=== PATIENT | female | born 1990 | race Caucasian/White ===

== ENCOUNTER → 2018-05-12 | Day surgery (SDC) | payer MEDICAID, OTHER ==
[~2018-05-12] MED LIST: CHOL500016 PO; ESCITALOPRAM OX10 MG PO; FERR325T14 PO; HYDROmorphone 2 MG/ML VIAL IV PRN; IV RINGERS,LACTATED 1000ML 1,000 ML IV SCH; LIDOCAINE 1% PF 2 ML VIAL. ID PRN; LIDOCAINE 1% PF 2 ML VIAL. ONE; METF500T16 PO; MORPHINE SULFATE 2 MG/ML VIAL. IV PRN; ONDANSETRON PF 4 MG/2 ML VIAL. IV PRN; PROCHLORPERAZINE 10 MG/2 ML VIAL. IV PRN; PROPOFOL 40 ML IV ONE; fentaNYL PF VIAL 100 MCG/2 ML VIAL IV PRN
[2018-05-12 08:22] VITALS: BP 113/59
--- NOTE | 2018-05-12 08:46 | HP ---
ADMIT DATE: 05/12/2018 REASON: History of colonic polyps for surveillance colonoscopy. REFERRING PHYSICIAN: Omar Obregon MD HISTORY OF PRESENT ILLNESS: This is a 27-year-old female with past medical history significant for appendectomy, cholecystectomy, tonsillectomy, tubal ligation as well as diabetes is seen for interval colonoscopy. Last exam was 3 years ago. There has been no constipation or diarrhea out of the ordinary. There has been no melena and/or hematochezia. Family history is positive for colon polyps with her father and grandmother. Weight and appetite are stable. She is otherwise without additional complaints. PAST MEDICAL HISTORY: Diabetes, status post appendectomy, cholecystectomy, tonsillectomy and tubal ligation. ALLERGIES: LATEX AND MORPHINE. MEDICATIONS: Include metformin, Lexapro, vitamins and iron. FAMILY AND SOCIAL HISTORY: She is nonsmoker and nondrinker. FAMILY HISTORY: Significant for colonic polyps with father and grandmother. REVIEW OF SYSTEMS: HEENT: There is no decrease in visual acuity issues. CARDIAC: No history of hypertension, palpitations, syncope. PULMONARY: No shortness of breath, productive cough or asthma. RENAL: No dysuria, frequency or hematuria. NEUROLOGIC: No stroke, migraine or neuropathy. PSYCHIATRIC: No mood swings, depression or insomnia. ENDOCRINE: History of diabetes. GASTROINTESTINAL REVIEW OF SYSTEMS: See history of present illness. HEMATOLOGIC: No bleeding, bruising or coagulopathy. DERMATOLOGIC: No skin rashes or pruritus. PHYSICAL EXAMINATION: GENERAL: Reveals a well-nourished, well-developed female. VITAL SIGNS: Temperature is 97, pulse 103 and respirations 18. HEENT: Normocephalic and atraumatic head. Pupils and extraocular muscles are not tested. Sclerae are anicteric. NECK: Supple. LUNGS: Clear. CARDIOVASCULAR: Reveals an S1 and S2 without S3, S4 or appreciable murmur. ABDOMEN: Reveals soft abdomen, normal bowel sounds without appreciable hepatosplenomegaly. EXTREMITIES: Reveals no cyanosis, clubbing or edema. IMPRESSION: History of colonic polyps. Surveillance exam is recommended at this time. Risks and benefits of the procedure including risk of hemorrhage and perforation have been discussed. The patient is willing to proceed. KOKO PECK MD DR: JENNIFER/maddie JOB#: [id number] / [id number] OMAR Grissom MD
== END | disposition home or self-care (01) ==
LOC: ENDOS 06:28
PROVIDERS: ATTEND Internal Medicine Gastroenterology
DX: Z12.11 Encounter for screening for malignant neoplasm of colon (principal); K64.0 First degree hemorrhoids; E11.9 Type 2 diabetes mellitus without complications; Z86.010 Personal history of colon polyps; Z90.49 Acquired absence of other specified parts of digestive tract; Z98.890 Other specified postprocedural states; Z98.51 Tubal ligation status; Z83.71 Family history of colonic polyps; Z79.84 Long term (current) use of oral hypoglycemic drugs; Z79.899 Other long term (current) drug therapy; Z88.5 Allergy status to narcotic agent; Z91.040 Latex allergy status
CPT/HCPCS: 45378; J2704

== ENCOUNTER → 2018-05-28 | Outpatient (CLI) | payer MEDICAID ==
[2018-05-12 08:22] VITALS: BP 113/59
[~2018-05-28] MED LIST changes: -HYDROmorphone 2 MG/ML VIAL IV PRN; -IV RINGERS,LACTATED 1000ML 1,000 ML IV SCH; -LIDOCAINE 1% PF 2 ML VIAL. ID PRN; -LIDOCAINE 1% PF 2 ML VIAL. ONE; -MORPHINE SULFATE 2 MG/ML VIAL. IV PRN; -ONDANSETRON PF 4 MG/2 ML VIAL. IV PRN; -PROCHLORPERAZINE 10 MG/2 ML VIAL. IV PRN; -PROPOFOL 40 ML IV ONE; -fentaNYL PF VIAL 100 MCG/2 ML VIAL IV PRN
--- NOTE | 2018-05-28 11:36 | RAD ---
Examination: MRI of the left knee without contrast HISTORY: History of left knee pain. History of MCL tear COMPARISON: None available TECHNIQUE: Multiplanar, multisequence MR imaging of the left knee was performed without contrast. FINDINGS: The anterior cruciate ligament, posterior cruciate ligament are intact. The medial meniscus, lateral meniscus appears intact. The medial collateral ligament, lateral collateral ligamentous complex including the fibular collateral ligament, biceps femoris tendon, popliteus tendon appear intact. Mild lateral tilting of the patella with increased T2 signal identified in the lateral infrapatellar fat. There is deep fissuring of cartilage identified in the lateral patellar facet with small subchondral cystic changes in the patella. The medial retinaculum, lateral retinaculum appears intact. The extensor mechanism is intact. Mild T2 signal identified in the soft tissue anterior to the infrapatellar tendon inferiorly. IMPRESSION: 1. Mild lateral tilting of the patella likely patellar maltracking with increased T2 signal identified in the infrapatellar fat. Correlate for impingement. 2. Minimal knee joint effusion. 3. Minimal increased T2 signal identified in the soft tissue anterior to the infrapatellar tendon inferiorly likely nonspecific edema. 4. Grade II chondromalacia patella. Electronically signed by: Flex Carvalho MD (05/28/2018 11:31 AM) [facility]
== END | disposition home or self-care (01) ==
LOC: MRI 09:52
PROVIDERS: ATTEND Orthopaedic Surgery
DX: M25.462 Effusion, left knee (principal); M22.42 Chondromalacia patellae, left knee
CPT/HCPCS: 73721

== ENCOUNTER 2018-10-07 05:39 | Observation (INO) | payer MEDICAID, OTHER ==
--- NOTE | 2018-10-06 18:33 | PDOC1 ---
History and Physical Date of Admission Date of Admission 10/07/2018 Identification/Chief Complaint Chief Complaint recurrent left patella dislocation Source Source: Chart review History of Present Illness History of Present Illness This 27-year-old woman injured her left knee approximately September 2014. She fell off a horse. She felt her patella dislocate. She had an MRI of the knee that did show an MCL sprain. She thought something broke in her knee. She got carried off. She was treated at [facility] and [facility]. At the time she didn't have health insurance. Her treatment consisted of knee immobilizer for 2 weeks, and exercises that her doctor showed her. She's had increasing symptoms in the knee, and frequent sensation that the patella dislocates since then. Since that initial injury she has tried bracing, exercises, and time, but continues to have the sensation of popping and grinding. It swells. She has a sensation of knee Instability. She has audible crepitus. She has difficulty with stairs, squatting, and kneeling. Her medical history is significant for blood clots. She had 4 clots all at once, and was treated with Xarelto for 9 months after that. I don't believe she is on anticoagulation at this time, and has not had further clots. There is no definite history of blood clots, perhaps an uncle who had a clot. She had her MRI 05/28/18 which shows patella malalignment Past Medical History Past Medical History Colon trouble. Depression. Ovarian cysts. Blood clots. PCOS. Asthma. Past Surgical History Past Surgical History cholecystectomy 2016 tonsillectomy 1994 appendectomy 2017 fallopian tube 2018 D&C Past Surgical History: Appendectomy, Cholecystectomy, Tonsillectomy Social History Smoke: No ALCOHOL: occassional Current Medications Current Medications Current Medications Fentanyl Citrate (Fentanyl 2ml Vial) 25 mcg PRN Q5MIN PRN IV MILD PAIN 1-3; Start 10/07/18 at 07:00; Stop 10/08/18 at 06:59 Fentanyl Citrate (Fentanyl 2ml Vial) 50 mcg PRN Q5MIN PRN IV MODERATE TO SEVERE PAIN; Start 10/07/18 at 07:00; Stop 10/08/18 at 06:59 Ringer's Solution 1,000 ml @ 30 mls/hr Q24H IV ; Start 10/07/18 at 07:00; Stop 10/07/18 at 18:59 Prochlorperazine Edisylate (Compazine) 5 mg PACU PRN PRN IV NAUSEA, MRX1; Start 10/07/18 at 07:00; Stop 10/08/18 at 06:59 Active Scripts Active Reported Naproxen 375 Mg Tablet 1 Tab PO PRN PRN Ferrous Sulfate 325 Mg Tablet 1 Tab PO DAILY Vitamin D3 (Cholecalciferol (Vitamin D3)) 5,000 Unit Tablet 1 Tab PO DAILY Escitalopram Oxalate 10 Mg Tablet 1 Tab PO DAILY Metformin Hcl 500 Mg Tablet 500 Mg PO TID Allergies Allergies: Coded Allergies: latex (Verified Allergy, Intermediate, Hives, 10/06/18) morphine (Verified Allergy, Intermediate, Rash, 10/06/18) lactose (Verified Allergy, Unknown, LACTOSE INTOLERANCE, 10/06/18) Uncoded Allergies: SKIN ADHESIVE (Allergy, Unknown, SKIN GLUE - RASH, 10/06/18) WASABI (Allergy, Unknown, THROAT STARTED TO CLOSE UP, 10/06/18) ROS Review of System CONSTITUTIONAL: Fever denies. Chills denies. Weight gain denies. Weakness none. weight loss denies. Fatigue none. OPHTHALMOLOGY: Blurred vision none. Double vision denies. Change in vision none. ENT: Hearing loss none. Change in voice denies. Rhinorrhea none. CARDIOLOGY: Palpitations none. Shortness of breath denies. Chest pain denies. GASTROENTEROLOGY: Vomiting none. Dysphagia none. UROLOGY: Voiding normally yes. Hematuria none. MUSCULOSKELETAL: Chronic back or neck pain denies. Swelling of the feet, hands, ankles and /or legs denies. Joint pain no. DERMATOLOGY: Rash denies. Lumps none. NEUROLOGY: Dizziness/lightheadedness denies. Double vision, temporary blindness denies. Tingling/numbness none. PSYCHOLOGY: Change in mood or personality denies. Memory loss none. ENDOCRINOLOGY: Obesity denies. Fatigue none. Weight loss none. HEMATOLOGY/LYMPH: Hepatitis denies. Enlarged lymph nodes denies. positive for knee pain, and for leg swelling. Physical Exam General: Alert, Cooperative HEENT: Atraumatic Lungs: Normal air movement Heart: RRR Abdomen: Soft Extremities: No clubbing, No cyanosis, No edema, Normal pulses, Other (The right knee shows normal gross alignment, no masses and no effusion. Q angle appears abnormal. Tenderness to palpation of the lateral patella. Range of motion is 0-125 degrees, with moderate crepitus, and pain at the extremes of motion. When she does active range of motion there is audible crepitus. The knee is stable to varus and valgus stress without subluxation or laxity. Muscle strength is normal (5/5) for quadriceps and hamstrings, and muscle tone is normal. The skin is normal with no scars, rashes, lesions or ulcers. Light touch sensation is intact. No edema and no varicosities. Dorsalis pedis pulse is intact and capillary refill is normal. There is patellar hypermobility with lateral glide of 3 quadrants and positive lateral apprehension) Images Images Report reviewed, images independently reviewed, MRI 05/28/18. Series 5 damage 10 shows the severe patellar tilt and subluxation. Series 5 image 14 and series 4 image 29 show the significant TT to TG distance, measured at 21 mm on series 4. Significantly increased from 9 mm normal. [facility] [address] [place] [address] IMAGING REPORT Signed PATIENT: YADIRA MONZON ACCOUNT: [id number] : 1990 LOCATION: MRI AGE: 27 SEX: F EXAM STATUS: REG CLI ORD. PHYSICIAN: MARISEL MARS MD REASON: PROCEDURE: LOWER EXT JOINT WO LT Examination: MRI of the left knee without contrast HISTORY: History of left knee pain. History of MCL tear COMPARISON: None available TECHNIQUE: Multiplanar, multisequence MR imaging of the left knee was performed without contrast. FINDINGS: The anterior cruciate ligament, posterior cruciate ligament are intact. The medial meniscus, lateral meniscus appears intact. The medial collateral ligament, lateral collateral ligamentous complex including the fibular collateral ligament, biceps femoris tendon, popliteus tendon appear intact. Mild lateral tilting of the patella with increased T2 signal identified in the lateral infrapatellar fat. There is deep fissuring of cartilage identified in the lateral patellar facet with small subchondral cystic changes in the patella. The medial retinaculum, lateral retinaculum appears intact. The extensor mechanism is intact. Mild T2 signal identified in the soft tissue anterior to the infrapatellar tendon inferiorly. IMPRESSION: 1. Mild lateral tilting of the patella likely patellar maltracking with increased T2 signal identified in the infrapatellar fat. Correlate for impingement. 2. Minimal knee joint effusion. 3. Minimal increased T2 signal identified in the soft tissue anterior to the infrapatellar tendon inferiorly likely nonspecific edema. 4. Grade II chondromalacia patella. Electronically signed by: Flex Carvalho MD (05/28/2018 11:31 AM) [id number] DICTATED and SIGNED BY: FLEX CARVALHO MD DATE: 05/28/18 1117 I reviewed the MRI images from 10/08/14 which showed a bob rthrosis, probable patellar dislocation or subluxation, and mild MCL sprain. There was no report with these images. VTE Prophylaxis Ordered VTE Prophylaxis Devices: Yes VTE Pharmacological Prophylaxi: Yes Assessment/Plan Assessment/Plan 1. Patellar instability of left knee: She has a history of knee injury, and patellar instability since then. On my examination her MPFL (medial patellofemoral ligament) is torn, and she has abnormal alignment distally of the tibial tubercle. She also has severe chondromalacia on examination and by history. 2. Recurrent dislocation of left patella: We discussed treatment of her patellar instability and recurrent dislocation symptoms. She has a high Q angle, patellar tilt, patellofemoral subluxation and abnormal cartilage on the patella. I recommended arthroscopy, chondroplasty, medial patellofemoral ligament reconstruction, and tibial tubercle osteotomy. We discussed the potential risks of infection, compartment syndrome, nerve injury, bleeding, scarring, need for hardware removal, continued dislocation episodes either medial or lateral or other potential surgical or anesthetic complications. All of her questions about surgery were answered and she desires to proceed MARISEL MARS MD October 06, 2018 18:33
[2018-10-07] VITALS (11 sets, daily range): BP systolic 108–148; BP diastolic 57–82
[~2018-10-07] VITALS: Ht 160 cm; Wt 122.5 kg
[~2018-10-07 05:39] MED LIST changes: +NAPR-695 PO
[2018-10-07] MEDS ORDERED: ceFAZolin SODIUM 3 GM in IV DEXTROSE 5% 100ML 100 ML IV PRN (06:00)
[2018-10-07] MEDS ORDERED: EPINEPHrine VIAL 30 MG/30 ML VIAL ONE (06:02)
[2018-10-07] MEDS ORDERED: BUPIVACAINE-EPI 0.25%-1:200000 MPF 30 ML VIAL. ONE ×2 (06:02→06:15)
[2018-10-07 06:28] LABS: U PREG PATIENT NEGATIVE (NEG)
[2018-10-07] MEDS ORDERED: SCOPOLAMINE 1.5MG PATCH. TD ONE ×2 (06:30→06:45)
[2018-10-07] MEDS: IV RINGERS,LACTATED 1000ML 1,000 ML IV SCH ×2 (06:39→10:32)
[2018-10-07] MEDS ORDERED: fentaNYL PF VIAL 100 MCG/2 ML VIAL IV PRN ×2 (07:00)
[2018-10-07] MEDS ORDERED: PROCHLORPERAZINE 10 MG/2 ML VIAL. IV PRN (07:00)
[2018-10-07] MEDS ORDERED: LIDOCAINE 2% PF 5 ML VIAL. ONE (07:05)
[2018-10-07] MEDS ORDERED: PROPOFOL 20 ML IV ONE ×2 (07:05→09:54)
[2018-10-07] MEDS ORDERED: DEXAMETHASONE SOD PHOS 4 MG/ML VIAL ONE ×2 (07:06)
[2018-10-07] MEDS ORDERED: ONDANSETRON PF 4 MG/2 ML VIAL. ONE (07:06)
[2018-10-07] MEDS ORDERED: SUCCINYLCHOLINE 200 MG/10 ML VIAL. ONE (07:07)
[2018-10-07] MEDS ORDERED: fentaNYL PF VIAL 100 MCG/2 ML VIAL ONE ×2 (07:07→08:17)
[2018-10-07] MEDS ORDERED: ROCURONIUM 50 MG/5 ML VIAL. ONE (07:07)
[2018-10-07] MEDS ORDERED: MIDAZOLAM HCL/PF 2 MG/2 ML VIAL. ONE (07:08)
[2018-10-07] MEDS ORDERED: diphenhydrAMINE 50 MG/ML VIAL ONE (07:39)
[2018-10-07] MEDS ORDERED: FAMOTIDINE 20 MG/2 ML VIAL ONE (07:48)
[2018-10-07] MEDS ORDERED: KETAMINE HCL IN NACL, ISO-OSM 50 MG/5 ML SYRINGE ONE (08:08)
[2018-10-07] MEDS ORDERED: HYDROmorphone 2 MG/ML VIAL ONE ×2 (08:18→10:19)
[2018-10-07] MEDS ORDERED: KETOROLAC 30 MG/ML INJ FOR OR. INJ ONE (09:33)
[2018-10-07] MEDS ORDERED: SEVOFLURANE > 120 MINUTES. IH ONE (09:41)
--- NOTE | 2018-10-07 09:57 | PDOC4 ---
Operative Note Operative Note Date of Procedure: October 07, 2018 Pre-Op Diagnosis: recurrent patella dislocation left knee Post-Op Diagnosis: recurrent patella dislocation left knee Procedures: 1. Tibial tubercle osteotomy Rickey procedure left tibia 2. Medial patellofemoral ligament reconstruction using ipsilateral hamstring autograft 3. Knee arthroscopy with chondroplasty Surgeon: Marisel Fernandez MD Cns: Criss ALBRIGHT, and Paul CARTER Anesthesia: General EBL: 200 mL Specimens Obtained: none Complications: none Drains: 10 [place] Citizen Hemovac Tourniquet time: 60 minutes Indications for Procedure: The patient is a 27-year-old with recurrent left patellar dislocation episodes. She and I talked about the risks and benefits of proceeding with the procedures above including tibial tubercle osteotomy, knee arthroscopy, and the patellofemoral ligament reconstruction using autograft. We discussed the potential risks such as nonunion, infection, blood clots, neurovascular injury, recurrent dislocations, scarring, need for hardware removal, compartment syndrome or other potential surgical or anesthetic competitions. All of their questions about surgery were answered and she desired to proceed. A written consent was obtained. Procedure in Detail: The patient was identified in the preoperative holding area. The correct left lower extremity was marked by me. The patient was taken to the operating room where general anesthesia was used. The patient was positi oned supine on the operating table. Preoperative antibiotics were given intravenously. A timeout procedure was performed. A tourniquet was placed on the upper thigh. A lateral brace and heel bump were used. The limb was prepared in sterile fashion from the toes to the tourniquet and sterile drapes are applied with an impervious stockinette over the lower limb. The hamstring graft was harvested first. A 4 cm longitudinal incision was made over the pes anserine bursa. I elevated the sartorius fascia. I was able to elevate the sartorius fascia and then identified the semitendinosus tendon which I stripped up the thigh with a [employer] tendon harvester. I then harvested the gracilis tendon, and the length of the tendon graft was 22 cm. The tendon graft was now taken to the back table or was further prepared by my rn first assistant Paul Aguilera. He removed excess muscle and synovium. He whipstitched each of the 2 free ends with #2 FiberWire suture. He kept the graft moistened and pretensioned until implantation. While he prepared the graft, I proceeded with the arthroscopy. The limb was elevated and then exsanguinated with an Esmarch bandage. The tourniquet was inflated to 350 mmHg. Lateral and medial arthroscopy portals were established. Systematic arthroscopy of the knee joint was performed. The medial and lateral menisci were normal, mild degenerative quality of the lateral meniscus but no tear. The cartilage was normal medially Outerbridge 0, and laterally is Outerbridge 1. The ACL and PCL are intact. There is severe chondromalacia of the patella Outerbridge 3 mostly medially, and gentle shaving chondroplasty was performed. The suprapatellar pouch medial and lateral gutters were free of loose bodies. There is severe lateral subluxation of the patella, nearly dislocated with the knee in extension and also patella david is noteed. The arthroscopic instruments were removed. A longitudinal incision was made just lateral to the tibial tubercle. Sharp dissection was used and Bovie electrocautery was used for hemostasis. The fascia of the tibialis anterior was elevated. The distal portion of the patellar tendon was identified. I now had Justin hold an AppSpotr-Hominy retractor beneath the patellar tendon, to prevent inadvertently cutting the tendon with the osteotome. I used a half-inch osteotome to create a dome shaped osteotomy horizontally through the tibial tubercle just above the patellar tendon attachment. I then used a half-inch Lily flat osteotome to create the oblique osteotomy as described by Rickey. This went from the lateral cortex to the medial cortex, and was designed parallel to the floor, so that there was no anteriorization nor any posterization of the tubercle. This patient did not need any offloading of the patellofemoral joint because she is already unstable, however I did not want to increase her contact forces. I had Criss hold the tubercle to its medialized and slightly distalized position. I reapplied the arthroscope and evaluated the tracking of the patella. This looked excellent. I then completed the osteotomy and secured it with fixation using three 3.5 mm cortical screws and each of the screws had a washer. Excellent reduction and fixation was obtained with secure compression of all 3 screws. Finally the medial patellofemoral ligament reconstruction was performed. A medial incision was made at the superior aspect of the patella. Sharp dissection was used and Bovie electrocautery was used for hemostasis. The medial patellar cartilage was exposed. A small arthrotomy had been made. I then used the Synthes 4.5 mm drill bit to create the tunnels in the bone of the patella. The first of these was 1 cm distal to the superior pole of the patella, and angled slightly obliquely so as to exit the anterior cortex of the patella. The second was 1 cm further distal, at the skull valley MPFL attachment, again exiting the anterior medial cortex, obliquely angled starting at the cartilage margin medially. I then used a [employer] suture passer to place #5 FiberWire passing sutures. I then had Criss bringing the graft from the back table, and we passed the graft through the tunnels. We were able to pass the graft easily through the tunnels, and bringing both tails out the medial aspect of the patella. An incision was made at this point over the medial femoral epicondyle. The im age intensifier was brought in, and a perfect lateral of the knee was taken. I interpreted all of the images intraoperatively by myself. The Schottle point was identified, slightly anterior to the posterior femoral cortex, slightly distal to the articular margin, and slightly proximal to the posterior aspect of the intercondylar notch. A guidepin (Beath pin) was placed, and drilled across the femur, exiting out the skin of the lateral thigh through the Schottle point. A 6 mm reamer was used to create a socket, to the full depth all the way to the lateral femoral cortex to allow the graft to tension as much as needed. I now passed the #2 FiberWire sutures from the medial aspect of the patella through the deepest extracapsular layer of the knee, and deployed those sutures onto the Beath pin. Now I had Criss tension the graft using those #2 FiberWire sutures and checked the patella reduction arthroscopically. I deployed the 6 mm x 23 mm BioScrew from the [employer] company over a nitinol wire. This secured the graft nicely. The patella was now reexamined and was unable to be dislocated. There was nice concentric reduction of the patella arthroscopically. There was no excessive tension. Copious irrigation was used. The tourniquet was released. Bovie electric cautery was used for hemostasis. An injection was used with bupivacaine and epinephrine. A Hemovac drain was placed. Incisions were now closed. I closed deep fascia with #1 Vicryl suture at the tibial tubercle and the patella. Criss closed the subcutaneous tissues with 2-0 Vicryl. I had Criss close the skin with 3-0 Prolene. Xeroform sterile dressings and knee immobilizer were applied. Needle and sponge counts were correct. There were no apparent complications. MARISEL FERNANDEZ MD October 07, 2018 09:57
[2018-10-07] MEDS ORDERED: POLYETHYLENE GLYCOL 3350 17 GM PACKET. PO PRN (10:00)
[2018-10-07] MEDS ORDERED: oxyCODONE/APAP 5/325 1 TAB TABLET PO PRN ×2 (10:00→10:30)
[2018-10-07] MEDS ORDERED: DEXTROSE 50% 25 GM / 50ML DISP.SYRIN. IV PRN (10:00)
[2018-10-07] MEDS ORDERED: HYDROcodone/APAP 7.5/325MG 1 TAB TABLET PO PRN (10:00)
[2018-10-07] MEDS: HYDROmorphone 2 MG/ML VIAL IV PRN ×2 (10:45→11:06)
--- NOTE | 2018-10-07 10:57 | RAD ---
EXAM: AP and lateral views of the left knee DATE: 10/07/2018 9:57 AM INDICATION: Postoperative evaluation for alignment COMPARISON: No Prior FINDINGS/ IMPRESSION: Changes of tibial tuberosity osteotomy are seen with 3 screws fixating the tibial tuberosity fragment. The proximal screw tip extends into the posterior soft tissues and the distal screw extends into the medial soft tissues. Medial femoral condylar and patellar lucency are also seen, postsurgical. Electronically signed by: Jackson Hilario MD (10/07/2018 10:54 AM) [id number]
[2018-10-07] MEDS: IV 1/2 NORMAL SALINE 1,000 ML IV SCH (11:51)
[2018-10-07] MEDS: ceFAZolin SODIUM 3 GM in IV DEXTROSE 5% 100ML 100 ML IV SCH ×2 (13:18→20:58)
[2018-10-07] MEDS: fentaNYL PF VIAL 100 MCG/2 ML VIAL IV PRN ×3 (13:22→20:58)
[2018-10-07] MEDS: oxyCODONE IR 5 MG TABLET PO PRN (14:45)
[2018-10-07] MEDS: ONDANSETRON PF 4 MG/2 ML VIAL. IV PRN ×2 (16:06→21:13)
[2018-10-07] MEDS: metFORMIN 500 MG TABLET PO SCH (16:48)
[2018-10-07] MEDS: KETOROLAC 30 MG/ML VIAL. IV SCH (16:49)
[2018-10-07] MEDS: HYDROcodone/APAP 7.5/325MG 1 TAB TABLET PO PRN ×2 (16:56→23:00)
[2018-10-08] MEDS: KETOROLAC 30 MG/ML VIAL. IV SCH ×6 (01:23→23:12)
[2018-10-08] MEDS: IV 1/2 NORMAL SALINE 1,000 ML IV SCH ×2 (02:07→14:40)
[2018-10-08] MEDS: ceFAZolin SODIUM 3 GM in IV DEXTROSE 5% 100ML 100 ML IV SCH (02:31)
[2018-10-08 03:00] VITALS: BP 110/47
[2018-10-08] MEDS: HYDROcodone/APAP 7.5/325MG 1 TAB TABLET PO PRN (05:46)
[2018-10-08] MEDS ORDERED: MAGNESIUM HYDROXIDE 2,400 MG/30 ML ORAL.SUSP. PO PRN (06:00)
[2018-10-08 07:15] VITALS: BP 107/58
[2018-10-08] MEDS: metFORMIN 500 MG TABLET PO SCH ×3 (08:00→17:00)
--- NOTE | 2018-10-08 08:04 | PDOC ---
ORTHO PROGRESS NOTES Subjective Patient feeling well with pain at 5 out of 10 this morning. Post-op Day: 1 Procedure Left Knee Tibial Tubercle Osteotomy tibia with Medial Patellofemoral Ligament reconstruction, knee arthroscopy with chrondroplasty. Vitals Vital Signs Date Time Temp Pulse Resp B/P (MAP) Pulse Ox O2 Delivery O2 Flow Rate FiO2 10/08/18 06:46 Room Air 10/08/18 03:00 98.3 72 18 110/47 (68) 97 98.3 10/07/18 16:11 2.0 Labs Laboratory Tests Test 10/07/18 06:00 Urine Test Negative (NEG) Notes awake and alert Assessment and Plan POD#1 as listed above motor and sensory intact distally dressing dry and intact Pain control and up with PT Expect d/c tomorrow JAVIER AMIN APRN October 08, 2018 08:04
[2018-10-08] MEDS: FERROUS SULFATE 325 MG TABLET. PO SCH (08:36)
[2018-10-08] MEDS: RIVAROXABAN 10 MG TABLET. PO SCH (08:36)
[2018-10-08] MEDS: CHOLECALCIFEROL (VITAMIN D3) 5,000 UNIT CAPSULE PO SCH (08:36)
[2018-10-08] MEDS: CITALOPRAM 20 MG TABLET. PO SCH (08:36)
[2018-10-08] MEDS: SENNOSIDES/DOCUSATE 8.6/50MG TABLET. PO SCH (08:36)
[2018-10-08] MEDS: fentaNYL PF VIAL 100 MCG/2 ML VIAL IV PRN (08:41)
[2018-10-08] MEDS ORDERED: CHOLECALCIFEROL (VITAMIN D3) 1,000 UNIT TABLET PO SCH (09:00)
--- NOTE | 2018-10-08 09:00 | NUR ---
rests quietly in bed; immobilizer remains in place. she has good strength, pulses and sensation. rating her pain is approx 5-6.
[2018-10-08 11:06] VITALS: BP 98/52
[2018-10-08] MEDS: oxyCODONE IR 5 MG TABLET PO PRN ×4 (11:22→20:14)
[2018-10-08] MEDS ORDERED: ANTI-COAG MONITOR BY PHARMACY. MC PRN (11:30)
--- NOTE | 2018-10-08 15:00 | NUR ---
Dr. Fernandez here and remove Hemovac. states that she is painful. she has been medicated with Toradol and oxycodone.
[2018-10-08 15:03] VITALS: BP 102/55
[2018-10-08] MEDS ORDERED: BISACODYL 10 MG SUPP.RECT. PR PRN (16:00)
--- NOTE | 2018-10-08 16:44 | PDOC ---
PROGRESS NOTES Subjective Subjective Quite a bit of pain, but better with narcotics. Not safe to walk yet because of heavy narcotics. Objective Vital Signs Vital Signs Date Time Temp Pulse Resp B/P (MAP) Pulse Ox O2 Delivery O2 Flow Rate FiO2 10/08/18 15:03 97.6 83 18 102/55 (71) 96 Room Air 97.6 10/07/18 16:11 2.0 Physical Exam No sign of compartment syndrome, neurovascular injury nor DVT. Mild bloody drainage. Hemovac minimal output today and I removed it. In bed currently, looks immobile and mildly sedated, but conversant. Labs Laboratory Tests Test 10/07/18 06:00 Urine Test Negative (NEG) Imaging Postop x-rays report reviewed, images independently reviewed. Screws a little l gallo but doubt these will cause a problem. Satisfactory MPFL and TTO otherwise. [facility] [address] [place] [address] IMAGING REPORT Signed PATIENT: YADIRA MONZON ACCOUNT: [id number] : 1990 LOCATION: SURG AGE: 27 SEX: F EXAM STATUS: REG [facility] ORD. PHYSICIAN: MARISEL MARS MD REASON: POST OP LEFT KNEE PROCEDURE: KNEE LEFT 2V EXAM: AP and lateral views of the left knee DATE: 10/07/2018 9:57 AM INDICATION: Postoperative evaluation for alignment COMPARISON: No Prior FINDINGS/ IMPRESSION: Changes of tibial tuberosity osteotomy are seen with 3 screws fixating the tibial tuberosity fragment. The proximal screw tip extends into the posterior soft tissues and the distal screw extends into the medial soft tissues. Medial femoral condylar and patellar lucency are also seen, postsurgical. Electronically signed by: Jackson Hilario MD (10/07/2018 10:54 AM) [id number] DICTATED and SIGNED BY: JACKSON HILARIO MD DATE: 10/07/18 1054 Assessment Assessment POD#1 after TTO and MPFL Plan Plan of Care Continue Xarelto and pain medication. Continue PT. Drain out today. Likely home tomorrow. MARISEL MARS MD October 08, 2018 16:44
[2018-10-08 19:00] VITALS: BP 118/66
[2018-10-08] MEDS ORDERED: ZOLPIDEM 5 MG TABLET. PO PRN (21:00)
[2018-10-08 23:00] VITALS: BP 108/64
[2018-10-09 03:00] VITALS: BP 107/65
[2018-10-09] MEDS: oxyCODONE IR 5 MG TABLET PO PRN ×2 (03:32→09:37)
[2018-10-09] MEDS: ONDANSETRON PF 4 MG/2 ML VIAL. IV PRN ×2 (03:44→09:36)
[2018-10-09] MEDS: IV 1/2 NORMAL SALINE 1,000 ML IV SCH (04:00)
[2018-10-09] MEDS: KETOROLAC 30 MG/ML VIAL. IV SCH ×2 (05:40→11:35)
[2018-10-09 07:00] VITALS: BP 119/55
[2018-10-09] MEDS: metFORMIN 500 MG TABLET PO SCH ×2 (08:00→11:38)
[2018-10-09] MEDS: FERROUS SULFATE 325 MG TABLET. PO SCH (08:04)
[2018-10-09] MEDS: CHOLECALCIFEROL (VITAMIN D3) 5,000 UNIT CAPSULE PO SCH (08:04)
[2018-10-09] MEDS: RIVAROXABAN 10 MG TABLET. PO SCH (08:04)
[2018-10-09] MEDS: SENNOSIDES/DOCUSATE 8.6/50MG TABLET. PO SCH (08:04)
[2018-10-09] MEDS: CITALOPRAM 20 MG TABLET. PO SCH (08:04)
[2018-10-09 11:00] VITALS: BP 128/62
--- NOTE | 2018-10-09 12:35 | PDOC ---
PROGRESS NOTES Subjective Subjective Doing somewhat better, tired. Objective Vital Signs Vital Signs Date Time Temp Pulse Resp B/P (MAP) Pulse Ox O2 Delivery O2 Flow Rate FiO2 10/09/18 11:00 98.1 85 16 128/62 (84) 96 Room Air 98.1 10/07/18 16:11 2.0 Physical Exam Dressing intact and dry. Toes NVI. No calf tenderness. Homans neg. Assessment Assessment POD#2 after TTO and MPFL with knee scope and chondroplasty. Hx DVTs. Plan Plan of Long-Term today Continue knee immobilizer TTWB Keep incisions dry. Continue Xarelto 30 days Ambien for sleep, Percocet for pain Office FU MARISEL MARS MD October 09, 2018 12:35
[2018-10-09] MEDS ORDERED: OXYC1TAB15 PO (12:39)
[2018-10-09] MEDS ORDERED: ZOLP5TAB PO (12:39)
[2018-10-09] MEDS ORDERED: RIVA10TA PO (12:42)
--- NOTE | 2018-10-09 14:45 | NUR ---
Discharge instructions and belongings reviewed with patient, verbalized understanding. Patient was escorted out via wheelchair by Rashmi DRAPER and picked up by her Mother.
== END 2018-10-09 14:47 | disposition home or self-care (01) ==
LOC: SURG 05:39 → 4 NORTH 11:28
PROVIDERS: ADMIT Orthopaedic Surgery; ATTEND Orthopaedic Surgery
DX: M22.02 Recurrent dislocation of patella, left knee (principal); M23.52 Chronic instability of knee, left knee; Z98.890 Other specified postprocedural states; J45.909 Unspecified asthma, uncomplicated; F32.9 Major depressive disorder, single episode, unspecified; N83.209 Unspecified ovarian cyst, unspecified side; Z90.49 Acquired absence of other specified parts of digestive tract; Z86.718 Personal history of other venous thrombosis and embolism; E28.2 Polycystic ovarian syndrome; V80.010A Animal-rider injured by fall from or being thrown from horse in noncollision accident, initial encounter; Y93.52 Activity, horseback riding; Y92.89 Other specified places as the place of occurrence of the external cause; Y99.8 Other external cause status; M22.40 Chondromalacia patellae, unspecified knee
CPT/HCPCS: 27418; 27427; 29877; 73560; 76000; 81025; 96365; 96366; 96375; 96376; 97110; 97116; 97162; 97166; 97530; 97535; A7015; C1713; C1782; G0378; G0379; J0171; J0330; J0690; J0780; J1100; J1170; J1200; J1885; J2001; J2250; J2405; J2704; J3010; J3490; J7120

== ENCOUNTER 2018-10-10 15:52 | Emergency (ER) | payer OTHER ==
[~2018-10-10] VITALS: Ht 157.5 cm; Wt 122.5 kg
[~2018-10-10 15:52] MED LIST changes: +OXYC1TAB15 PO; +RIVA10TA PO; +ZOLP5TAB PO
[2018-10-10 16:53] VITALS: BP 149/85
--- NOTE | 2018-10-10 17:01 | PHYS DOC ---
Adult General Chief Complaint Chief Complaint: LOWEREXTREMITY INJURY HPI HPI Patient is a 27 year old female who presents complaining of increasing pain to the left knee that began this afternoon at 1:30 PM. Patient rates the pain at 9 out of 10 described as a sharp and constant worse on movement of the left lower extremity. Patient states on Saturday this week she had left knee surgery for chronic dislocation of the left patella, she states she was put in an immobilizer. She states today she was sitting on her couch with immobilizer on, she states she's tried holding the immobilizer and moving her left leg and effort to get out of the chair when she had a pop sound from the knee. She states she's had increasing pain since then. (ESTEFANY LUKE APRN) Review of Systems Review of Systems Constitutional: Denies fever or chills [] Musculoskeletal: Left knee pain Integument: Denies rash or skin lesions [] Neurologic: Denies headache, focal weakness or sensory changes [] All other systems were reviewed and found to be within normal limits, except as documented in this note. (ESTEFANY LKUE APRN) Allergies Allergies Allergies Coded Allergies Type Severity Reaction Last Updated Verified pineapple Allergy Severe mouth numbness and throat swelling 10/07/18 Yes adhesive Allergy Intermediate RASH-DERMABOND 10/09/18 Yes latex Allergy Intermediate Hives 10/07/18 Yes morphine Allergy Intermediate Rash 10/07/18 Yes lactose Adverse Reaction Intermediate LACTOSE INTOLERANCE 10/08/18 Yes Uncoded Allergies Type Severity Reaction Last Updated Verified WASABI Allergy Severe THROAT STARTED TO CLOSE UP 10/09/18 (JIMY CHANCE DO) Physical Exam Physical Exam Constitutional: Well developed, well nourished, no acute distress, non-toxic appearance. [] Skin: Warm, dry, no erythema, no rash. [] Back: No tenderness, no CVA tenderness. [] Extremities: Left knee is in an immobilizer, the immobilizer was removed as well as the Guillermo bandage to get access to the knee, the incision sites are well clara roximated with no signs of infection. No drainage. Full range of motion to the left toes. Adequate sensation to the left lower extremity. Cap refill less than 2 seconds the left toes. Neurologic: Alert and oriented X 3, normal motor function, normal sensory function, no focal deficits noted. [] Psychologic: Affect normal, judgement normal, mood normal. [] (ESTEFANY LUKE APRN) Current Patient Data Vital Signs Vital Signs Date Time Temp Pulse Resp B/P (MAP) Pulse Ox O2 Delivery O2 Flow Rate FiO2 10/10/18 16:53 98.4 91 16 149/85 (106) 96 Room Air 98.4 (CHANCE,JIMY Natalee DO) EKG EKG [] (ESTEFANY LUKE APRN) Radiology/Procedures Radiology/Procedures []PROCEDURE: KNEE LEFT 3V KNEE LEFT 3V History: Surgery on Saturday, heard popping sound Comparison: October 07, 2018 Findings: 3 views of the left knee are submitted. There are 3 screws of the proximal tibia which are fairly similar in position, traverse a bone fragment anteriorly of the tibia which is again somewhat displaced distally relative to expected location, degree of medial displacement which is questionably slightly increased. No new fracture is identified. 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 Impression: 1. There are again 3 screws of the proximal tibia traversing bone fragment, proximally slightly displaced more medially on this exam than previously. Electronically signed by: Jay Mariano MD (10/10/2018 5:26 PM) [facility] DICTATED and SIGNED BY: JAY MARIANO MD DATE: 10/10/181725 (ESTEFANY LUKE APRN) Course & Med Decision Making Course & Med Decision Making Pertinent Labs and Imaging studies reviewed. (See chart for details) This is a 27-year-old female patient presenting to the ED today with increasing pain to the left knee, patient had left knee cap surgery on Saturday this week, she was sitting on a couch today with the immobilizer on and used the immobilizer to try and move her left lower extremity. She states she had a pop sound from the knee. She's had increased pain since then. Her neurovascular exam of the left lower extremity is intact. The incision sites are well approximated with no signs of infection. No drainage. Xray of the left knee-There are again 3 screws of the proximal tibia traversing bone fragment, proximally slightly displaced more medially on this exam than previously. 18:08-Dr. Barbour looked at patient's x-rays states she can be d/c and f/u with her orthopedic doctor next week. (ESTEFANY LUKE APRN) Dragon Disclaimer Dragon Disclaimer This electronic medical record was generated, in whole or in part, using a voice recognition dictation system. (ESTEFANY LUKE APRN) Departure Departure Impression: Primary Impression: Knee pain, left Disposition: 01 HOME, SELF-CARE Condition: STABLE Referrals: OMAR TOLLIVER MD (PCP) follow up with your orthopedic next week Patient Instructions: Knee Pain Additional Instructions: You were seen for knee pain, please follow up with your Orthopedic doctor next week. Please continue to wear the knee brace, ice and elevate the extremity. Take your pain medicine as needed for pain. Attending Signature Attending Signature I have reviewed the PA/PRINT TRAFFIC MANAGER's note and plan of care. I was available for consultation as needed during the patient's visit in the emergency department. I agree with the clinical impression, plan, and disposition. (JIMY CHANCE DO) Problem Qualifiers Primary Impression: Knee pain, left Chronicity: acute Qualified Codes: M25.562 - Pain in left knee ESTEFANY LUKE APRN October 10, 2018 17:01 JIMY CHANCE DO October 14, 2018 05:08
--- NOTE | 2018-10-10 17:29 | RAD ---
KNEE LEFT 3V History: Surgery on Saturday, heard popping sound Comparison: October 07, 2018 Findings: 3 views of the left knee are submitted. There are 3 screws of the proximal tibia which are fairly similar in position, traverse a bone fragment anteriorly of the tibia which is again somewhat displaced distally relative to expected location, degree of medial displacement which is questionably slightly increased. No new fracture is identified. 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 Impression: 1. There are again 3 screws of the proximal tibia traversing bone fragment, proximally slightly displaced more medially on this exam than previously. Electronically signed by: Shaun Floyd MD (10/10/2018 5:26 PM) [facility]
== END 2018-10-10 19:16 | disposition home or self-care (01) ==
LOC: ER 15:52
DX: M25.562 Pain in left knee (principal); M79.605 Pain in left leg; Z91.040 Latex allergy status; Z88.5 Allergy status to narcotic agent; Z91.011 Allergy to milk products; Z91.018 Allergy to other foods; Z88.8 Allergy status to other drugs, medicaments and biological substances
CPT/HCPCS: 73562; 99284

== ENCOUNTER → 2019-08-07 | Day surgery (SDC) | payer OTHER ==
[~2019-08-07] MED LIST changes: +CEPH-264 PO; +IV RINGERS,LACTATED 1000ML 1,000 ML IV SCH; +LIDOCAINE 2% PF 5 ML VIAL. ONE; +PROPOFOL 40 ML IV ONE
[2019-08-07 10:42] VITALS: BP 108/67
--- NOTE | 2019-08-10 16:06 | PATHOLOGY ---
[facility] Accession Number: [id number] . 01 Material submitted: . PART A: colon - DESCENDING COLON POLYP BIOPSY. Modifiers: descending PART B: colon - RANDOM COLON BIOPSY PART C: colon - SIGMOID POLYP BIOPSY. Modifiers: sigmoid . 01 Clinical history: . Rectal bleed, diarrhea . 02 Diagnosis: A. Colon biopsy, descending colon polyp: - Tubular adenoma. . B. Colonic mucosa, random colon biopsies: - No significant pathologic abnormalities. . C. Colon biopsies, sigmoid colon polyps: - Tubular adenoma. - Hyperplastic polyp. (JPM:smooth 08/10/2019) [facility] 08/10/2019 0933 Local . 02 Comment: Sections of the descending colon biopsy reveal a tubular adenoma showing no high-grade dysplasia or evidence of malignancy. . Sections of the random colon biopsy reveal multiple segments of colonic mucosa containing multiple small mucosal-associated lymphoid aggregates. There is no evidence of a chronic destructive colitis, lymphocytic colitis, or collagenous colitis. . Sections of the sigmoid colon biopsy reveal a tubular adenoma and a hyperplastic polyp. There is no high-grade dysplasia or evidence of malignancy. (JPM:smooth 08/10/2019) . 02 Electronically signed: . Ean Foley MD, Pathologist NPI- [id number] . 01 Gross description: . A. The specimen is received in formalin, labeled "Rut Georgedo, descending colon polyp biopsy". Received is a segment of pale hinton soft tissue measuring 0.5 cm in maximum dimensions. The specimen is submitted entirely in cassette A1. . B. The specimen is received in formalin, labeled "Rut Kelvinpando, random colon biopsy". Received are 10 segments of pale hinton soft tissue ranging in size from 0.2 to 0.7 cm in maximum dimensions. The specimen is submitted entirely in cassette B1. . C. The specimen is received in formalin, labeled "Rut Reed, sigmoid colon polyp biopsy". Received are two segments of pale hinton soft tissue ranging in size from 0.4 to 0.7 cm in maximum dimensions. The specimen is submitted entirely in cassette C1. (CAA; 08/07/2019) QAC/QAC 08/07/2019 1702 Local . 02 Pathologist provided ICD-10: D12.4, D12.5, K63.5 . 02 CPT . 441844, [id number], 853273 Specimen Comment: A courtesy copy of this report has been sent to [phone], [phone] Specimen Comment: [id number] Specimen Comment: Report sent to / DR TOLLIVER Performed at: 01 [facility] [address], [place] [id number] MD Jacky Lerma MD Phone: [phone] Performed at: 02 [facility] [address] [place], [place] [id number] MD Ean Foley MD Phone: [phone]
== END ==
LOC: ENDOS 08:51
PROVIDERS: ATTEND Internal Medicine Gastroenterology
DX: R19.7 Diarrhea, unspecified (principal); D12.4 Benign neoplasm of descending colon; D12.3 Benign neoplasm of transverse colon; K64.0 First degree hemorrhoids; D64.9 Anemia, unspecified; F41.9 Anxiety disorder, unspecified; F32.9 Major depressive disorder, single episode, unspecified; E66.9 Obesity, unspecified; Z68.39 Body mass index [BMI] 39.0-39.9, adult; Z86.718 Personal history of other venous thrombosis and embolism; Z90.49 Acquired absence of other specified parts of digestive tract; Z87.440 Personal history of urinary (tract) infections; Z98.890 Other specified postprocedural states; Z72.89 Other problems related to lifestyle; Z88.1 Allergy status to other antibiotic agents; Z88.8 Allergy status to other drugs, medicaments and biological substances
CPT/HCPCS: 45380; 81025; 88305; J2704; J3490; 45384

== ENCOUNTER → 2019-09-06 | Day surgery (SDC) | payer OTHER ==
[~2019-09-06] MED LIST changes: +BUPIVACAINE MPF 0.5% 30 ML VIAL. ONE; +DEXAMETHASONE SOD PHOS 4 MG/ML VIAL ONE; +FAMOTIDINE 20 MG/2 ML VIAL ONE; +HYDR-3165 PO; +HYDROcodone/APAP 7.5/325MG 1 TAB TABLET PO ONE; -IV RINGERS,LACTATED 1000ML 1,000 ML IV SCH; -LIDOCAINE 2% PF 5 ML VIAL. ONE; +ONDANSETRON PF 4 MG/2 ML VIAL. IVP PRN; +ONDANSETRON PF 4 MG/2 ML VIAL. ONE; +PHENYLEPHRINE in 0.9% NACL PF 1 MG/10 ML SYRINGE. IV ONE; +PROCHLORPERAZINE 10 MG/2 ML VIAL. IV PRN; +PROPOFOL 20 ML IV ONE; -PROPOFOL 40 ML IV ONE; +SEVOFLURANE 31 TO 60 MINUTES. IH ONE; +ceFAZolin SODIUM IV Push 1 GM VIAL. IVP ONE; +fentaNYL PF VIAL 100 MCG/2 ML VIAL IV PRN; +fentaNYL PF VIAL 100 MCG/2 ML VIAL ONE
--- NOTE | 2019-09-06 09:35 | DISCH ---
DISCHARGE INSTRUCTIONS Condition on Discharge Condition on Discharge: Stable Activity After Discharge Activity Instructions for Disc: Activity as tolerated Driving Instructions after Dis: Do not drive today Weight Bearing Status after Di: As tolerated Diet after Discharge Diet after Discharge: Regular Wound Incision Care Wound/Incision Care: Ice to area for comfort, Keep wound elevated, Change dressing (may remove dressing in 2 days, then may shower if no drainage, cover incision with band aid) Wound Care Equipment: Dressings Contacting the DRArielle after DC Call your doctor for: Concerns you may have Follow-Up Follow up with: Dr. Barbour 10 days MIGUEL BARBOUR MD Sep 06, 2019 09:35
--- NOTE | 2019-09-06 09:46 | HP ---
ADMIT DATE: 09/06/2019 CHIEF COMPLAINT: Left knee pain, swelling, and drainage. HISTORY OF PRESENT ILLNESS: The patient is a 28-year-old female who underwent an arthroscopy of her left knee with a medial patellofemoral ligament reconstruction, tibial tubercle osteotomy and a chondroplasty on 10/07/[address] Fernandez. She states that she has since then been treated for infection and has had multiple episodes of sutures working their way out of the skin and reports that recently she has had repeated purulent drainage from her anterior medial distal incision. She said anytime that she gets into the shower, this area unroofs and drains pus. It has been tender around the area increasingly over the past couple of weeks and she notes that she had been on an antibiotic for a urinary tract type infection, but indicates that the symptoms of this are getting worse despite that. She notes that her stability has been good. She lacks terminal range of motion and recently went back to full duty work, but states that terminal bending of her knee continues to be difficult. She called me yesterday and indicated that this was going on. We talked about the possibility of evaluation in the Emergency Department due to the increasing pain and drainage. PAST MEDICAL HISTORY: Ovarian cysts, depression, blood clots, and asthma. PAST SURGICAL HISTORY: Left knee surgery, removal of her fallopian tubes, appendectomy, tonsillectomy, cholecystectomy, and a D and C. FAMILY HISTORY: She denies any significant family history. SOCIAL HISTORY: She denies smoking or drug use. Occasional alcohol consumption monthly. ALLERGIES: INCLUDE A RASH WITH LATEX, ITCHING WITH MORPHINE, REACTION TO SKIN GLUE, HISTORY OF YEAST INFECTIONS WITH AMOXICILLIN AND SHE IS INTOLERANT TO DAIRY PRODUCTS. REVIEW OF SYSTEMS: She denies any fever or chills but has had increased knee pain, redness, drainage, and pain around the incision site. She denies any chest pain or shortness of breath. She was under treatment for a urinary tract infection on oral antibiotics. PHYSICAL EXAMINATION: GENERAL: Pleasant, cooperative 28-year-old female, alert and oriented, no acute distress. HEENT: Atraumatic, normocephalic. HEART: Regular rate and rhythm. LUNGS: Clear to auscultation bilaterally. ABDOMEN: Benign. EXTREMITIES: On examination of the left knee, she does have a scabbed over area on the distal aspect of her anteromedial incision with redness and induration. She is tender on palpation over the area and the surrounding 2-inch radius, hard to say if there is any absolute fluctuance in the area, it is certainly swollen. She does have some prominent sutures palpable and an area of the other incisions as well, but no redness or erythema present there. She does not appear to have a knee effusion itself. She has good patellofemoral tracking and no tenderness over the tibial tubercle with any type of attempted movement, but she is very tender over that area with direct pressure. Ligaments are otherwise stable. She has normal examination of the contralateral right knee, bilateral hips and ankles with intact motor function, distal pulses, sensation, reflexes, skin in both lower extremities throughout. IMAGING: Previous x-rays show healed tibial tubercle osteotomy and retained 3 screw fixation hardware at the tibial tubercle osteotomy and evidence of a medial patellofemoral ligament reconstruction. IMPRESSION: Left knee, ongoing symptoms of suture abscess, increasing despite antibiotics, symptomatic hardware from a tibial tubercle osteotomy. TREATMENT PLAN: I went over with her that we could proceed with a couple of different options, #1 potentially proceed with surgical evaluation and treatment, opening up the area obtaining cultures, removal of any suture material and since she remains symptomatic after a healed tibial tubercle osteotomy with the hardware, could proceed with removing that at the same time. Alternatively, we could undergo additional observation, however, given the fact that this is getting worse and more symptomatic despite antibiotics for another condition and that she has been on multiple courses of antibiotics previously and previously treated in an ongoing fashion with recurrence of this several times despite clipping the sutures off and trying to observe, she thinks it is getting more symptomatic and is concerned about it. Therefore, after explaining risks, benefits, postoperative course of the possibility of a medical or other anesthetic complications, nerve or blood vessel damage and the possibility of ongoing pain despite this procedure, hardware removal, or clearing the infection, she does wish to proceed with surgical evaluation and treatment, tentatively this can be done on an outpatient basis to undergo the hardware removal, cultures, intraoperative antibiotics, and some postoperative empiric antibiotics pending cultures. She does wish to proceed today with surgical evaluation and treatment, having given informed consent, operating room crew will be called in for accomplishment of this procedure. MIGUEL ALLEN MD DR: LATRELL/maddie JOB#: [id number] / [id number]
[2019-09-06] MEDS: fentaNYL PF VIAL 100 MCG/2 ML VIAL IV PRN ×3 (13:00→13:37)
[2019-09-06 13:35] VITALS: BP 107/66
--- NOTE | 2019-09-06 14:50 | PDOC4 ---
Operative Note Operative Note Date of surgery: 09/06/2019 Preoperative diagnosis: Purulent drainage left knee and retained painful hardware Postoperative diagnosis: Same with suture abscess Operative procedure: Irrigation debridement left knee with deep hardware removal of screws debridement of suture abscess and removal other prominent sutures Surgeon: Angle Anesthesia: General Estimated blood loss: 25 cc Complications: None Intraoperative cultures suture abscess were obtained Operative indications: Please see my dictated orthopedic history and physical of today for detailed operative indications Operative text: Patient was identified procedure verified patient placed in the supine position on the operating table. After adequate amounts of general anesthesia were administered the right lower extremity was prepped and draped in the standard sterile fashion with a thigh tourniquet. After timeout was performed patient procedure identified and verified an incision was made first over the suture abscess and the pocket of purulent drainage was cultured and affected skin and subcutaneous tissue was excised sharply with scalpel and rongeurs thorough irrigation was carried out with normal saline solution and pulse lavage. Antibiotics were then given intravenously at that time 2 g of cefazolin. And a separate surgical blade was selected to make a anterolateral incision centered over the 3 retained screws. Deep dissection was carried out underneath the periosteum and each of the 3 screws were located and removed the 2 superior washers were successfully removed there was no evidence of any type of deep infection or purulence in the area the tibial tubercle osteotomy or the fixation hardware the third washer on attempted removal came off of the Nancy clamp and was lost distally and inferiorly and I could not readily retrieve it next to the bone and judged that attempting to retrieve it would cause additional damage more so than simply leaving the washer in an area where it was not palpable. Thorough irrigation again carried out normal saline solution and small incisions were made over her other incisions were prominent sutures were noted and were retrieved. Closure of all incisions with 4-0 nylon suture in a vertical mattress fashion. Half percent plain Marcaine was injected throughout the incision area and sterile dressings were applied consisting of Xeroform gauze 4 x 4 and ABD pads with an Guillermo wrap. Patient was returned to recovery room in stable condition having tolerated the procedure well MIGUEL ALLEN MD Sep 06, 2019 14:50
== END ==
LOC: OPSVCOP 08:16
PROVIDERS: ATTEND Orthopaedic Surgery
DX: T84.84XA Pain due to internal orthopedic prosthetic devices, implants and grafts, initial encounter (principal); T81.49XA Infection following a procedure, other surgical site, initial encounter; Y83.8 Other surgical procedures as the cause of abnormal reaction of the patient, or of later complication, without mention of misadventure at the time of the procedure; Y92.89 Other specified places as the place of occurrence of the external cause
CPT/HCPCS: 20680; 76000; 87071; 87075; J0690; J0696; J1100; J2370; J2704; J3010; J3490; A7015; J2405; J7030; J7120

== ENCOUNTER 2019-11-24 19:08 | Emergency (ER) | payer OTHER ==
[~2019-11-24] VITALS: Ht 157.5 cm; Wt 103.0 kg
[~2019-11-24 19:08] MED LIST changes: -BUPIVACAINE MPF 0.5% 30 ML VIAL. ONE; -DEXAMETHASONE SOD PHOS 4 MG/ML VIAL ONE; -FAMOTIDINE 20 MG/2 ML VIAL ONE; -HYDROcodone/APAP 7.5/325MG 1 TAB TABLET PO ONE; -ONDANSETRON PF 4 MG/2 ML VIAL. IVP PRN; -ONDANSETRON PF 4 MG/2 ML VIAL. ONE; -PHENYLEPHRINE in 0.9% NACL PF 1 MG/10 ML SYRINGE. IV ONE; -PROCHLORPERAZINE 10 MG/2 ML VIAL. IV PRN; -PROPOFOL 20 ML IV ONE; -SEVOFLURANE 31 TO 60 MINUTES. IH ONE; -ceFAZolin SODIUM IV Push 1 GM VIAL. IVP ONE; -fentaNYL PF VIAL 100 MCG/2 ML VIAL IV PRN; -fentaNYL PF VIAL 100 MCG/2 ML VIAL ONE
[2019-11-24 19:37] LABS: BILIRUBIN,URINE NEGATIVE (NEG); CLARITY,URINE CLOUDY; COLOR,URINE YELLOW; NITRITE,URINE NEGATIVE (NEG); PROTEIN,URINE NEGATIVE (NEG-TRACE)
[2019-11-24] MEDS ORDERED: ONDANSETRON PF 4 MG/2 ML VIAL. ONE (19:49)
[2019-11-24 19:50] LABS: BACTERIA,URINE MODERATE /HPF (0-FEW); SQUAMOUS EPITHELIAL CELL,UR MOD /LPF; WBC,URINE TNTC /HPF (0-4)
[2019-11-24 19:56] LABS: BASO % 0 % (0-3); EOS % 0 % (0-3); HEMATOCRIT 40.7 % (36.0-47.0); HEMOGLOBIN 14.1 g/dL (12.0-15.5); LYMPH % 29 % (24-48); MEAN CORPUSCULAR HEMOGLOBIN 32 pg (25-35); MEAN CORPUSCULAR HGB CONC 35 g/dL (31-37); MEAN CORPUSCULAR VOLUME 93 fL (79-100); MONO # 0.5 x10^3/uL (0.0-1.1); MONO % 8 % (0-9); NEUT # 4.4 x10^3/uL (1.8-7.7); NEUT % 63 % (31-73); PLATELET COUNT 210 x10^3/uL (140-400); RED CELL DISTRIBUTION WIDTH 12.6 % (11.5-14.5); WHITE BLOOD COUNT 7.1 x10^3/uL (4.0-11.0)
[2019-11-24] MEDS ORDERED: ONDANSETRON PF 4 MG/2 ML VIAL. IVP ONE (20:00)
[2019-11-24 20:02] LABS: CALCIUM 8.8 mg/dL (8.5-10.1); GFR 65.1; POTASSIUM 3.8 mmol/L (3.5-5.1)
[2019-11-24 20:07] LABS: ALBUMIN 3.7 g/dL (3.4-5.0); ALBUMIN/GLOBULIN RATIO 1.2 (1.0-1.7); TOTAL BILIRUBIN 0.2 mg/dL (0.2-1.0); TOTAL PROTEIN 6.7 g/dL (6.4-8.2)
[2019-11-24] MEDS ORDERED: KETOROLAC 30 MG/ML VIAL. IVP ONE (20:30)
--- NOTE | 2019-11-24 20:37 | RAD ---
CT Abdomen and Pelvis without contrast History: Flank pain Technique: Noncontrast CT imaging was performed of the abdomen and pelvis. Multiplanar images are reviewed. Exposure: One or more of the following individualized dose reduction techniques were utilized for this examination: 1. Automated exposure control 2. Adjustment of the mA and/or kV according to patient size 3. Use of iterative reconstruction technique. Comparison: None Findings: There are phleboliths in the left pelvis and it is difficult to identify the distal left ureter. There is no ureteral dilatation or hydronephrosis. There is no renal calculus. There is no abnormality of the limited visualized lung bases. Accurate evaluation of abdominal visceral organs is limited without intravenous contrast. There is no obvious abnormality of the spleen, liver, or pancreas. There has been cholecystectomy. There is no adrenal nodularity. Accurate evaluation of bowel is limited without oral contrast. There is no significant free air or bowel dilatation. There apparently has been appendectomy. There is IUD present in the uterus. There is nonspecific borderline sized right inguinal node about 1.1 cm short axis dimension. There is trace dependent free fluid in the pelvis, although possibly physiologic. Impression: 1. There is no hydronephrosis or renal calculus. There are phleboliths in the left pelvis and the distal left ureter is not well-visualized, difficult to entirely exclude a distal left ureteral calculus if there is corresponding pain on this side. 2. There is nonspecific borderline enlarged right inguinal node. Electronically signed by: Shaun Floyd MD (11/24/2019 8:33 PM) [facility]
[2019-11-24] MEDS ORDERED: cefTRIAXone IV Push 1 GM VIAL. IVP ONE (21:00)
[2019-11-24] MEDS ORDERED: SULF1TAB24 PO (21:05)
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
[2019-11-24 21:58] VITALS: BP 115/64
== END 2019-11-24 22:05 | disposition home or self-care (01) ==
LOC: ER 19:08
DX: S30.814A Abrasion of vagina and vulva, initial encounter (principal); N39.0 Urinary tract infection, site not specified; R10.9 Unspecified abdominal pain; F41.9 Anxiety disorder, unspecified; J45.909 Unspecified asthma, uncomplicated; K21.9 Gastro-esophageal reflux disease without esophagitis; N15.9 Renal tubulo-interstitial disease, unspecified; Z90.89 Acquired absence of other organs; Z90.49 Acquired absence of other specified parts of digestive tract; Z98.890 Other specified postprocedural states; Z91.018 Allergy to other foods; Z91.040 Latex allergy status; Z88.6 Allergy status to analgesic agent; Z88.8 Allergy status to other drugs, medicaments and biological substances; Z79.899 Other long term (current) drug therapy; Z86.718 Personal history of other venous thrombosis and embolism; X50.9XXA Other and unspecified overexertion or strenuous movements or postures, initial encounter; Y93.89 Activity, other specified; Y92.89 Other specified places as the place of occurrence of the external cause; Y99.8 Other external cause status
CPT/HCPCS: 36415; 74176; 80053; 81001; 81025; 83690; 85025; 87086; 96374; 96375; 99285; J0696; J1885; J2405

== ENCOUNTER → 2020-12-05 | Outpatient (CLI) | payer OTHER ==
[~2020-12-05] MED LIST changes: +SULF1TAB24 PO
--- NOTE | 2020-12-05 09:54 | RAD ---
INDICATION : Reason: TRANSAMINITIS; HYPERBILIRUBINEMIA / Spl. Instructions: / History: COMPARISON: CT November 2019 TECHNIQUE: Multiple ultrasound images obtained through the abdomen in grayscale and color. FINDINGS: Pancreas: Largely obscured by bowel gas. Liver: Echogenic Gallbladder: Removed IVC: Not well seen secondary to bowel gas. Aorta not well seen. Common Bile Duct: Not dilated. Bilateral Kidney: No hydronephrosis. Spleen unremarkable IMPRESSION: * Postcholecystectomy without common bile duct dilation. * Liver is mildly echogenic. Nonspecific but can be seen with fatty herniation. Electronically signed by: Ervin Coffey MD (12/05/2020 9:51 AM) [id number]
== END ==
LOC: US 09:10
PROVIDERS: ATTEND Family Medicine
DX: K76.89 Other specified diseases of liver (principal); R74.01 Elevation of levels of liver transaminase levels; E80.6 Other disorders of bilirubin metabolism
CPT/HCPCS: 76700

== ENCOUNTER → 2021-03-20 | Outpatient (CLI) | payer OTHER ==
[2021-03-20] VITALS (11 sets, daily range): BP systolic 107–117; BP diastolic 58–72
[~2021-03-20] VITALS: Ht 160 cm; Wt 91.0 kg
[~2021-03-20] MED LIST changes: +ACETAMINOPHEN 500 MG TABLET PO ONE; +DEXT20CA7 PO; +GELATIN SPONGE SIZE 12-7MM SPONGE. ONE; +LIDOCAINE WITH 8.4% SOD BICARB 3 ML DISP.SYRIN. IJ ONE; +LIDOCAINE WITH 8.4% SOD BICARB 3 ML DISP.SYRIN. ONE; +MIDAZOLAM HCL/PF 2 MG/2 ML VIAL. IV ONE; +MIDAZOLAM HCL/PF 2 MG/2 ML VIAL. ONE; +[UNRECOGNIZED DRUG - CODE] PO; +fentaNYL PF VIAL 100 MCG/2 ML VIAL IV ONE; +fentaNYL PF VIAL 100 MCG/2 ML VIAL ONE
[2021-03-20 09:03] LABS: BASO % 0 % (0-3); EOS # 0.1 x10^3/uL (0.0-0.7); EOS % 1 % (0-3); HEMATOCRIT 42.4 % (39.0-53.0); HEMOGLOBIN 14.4 g/dL (13.0-17.5); LYMPH # 2.2 x10^3/uL (1.0-4.8); LYMPH % 43 % (24-48); MEAN CORPUSCULAR HEMOGLOBIN 33 pg (25-35); MEAN CORPUSCULAR HGB CONC 34 g/dL (31-37); MEAN CORPUSCULAR VOLUME 96 fL (79-100); MONO # 0.4 x10^3/uL (0.0-1.1); MONO % 8 % (0-9); NEUT # 2.5 x10^3/uL (1.8-7.7); NEUT % 48 % (31-73); PLATELET COUNT 282 x10^3/uL (140-400); RED BLOOD COUNT 4.43 x10^6/uL (4.30-5.70); WHITE BLOOD COUNT 5.2 x10^3/uL (4.0-11.0)
[2021-03-20 09:16] LABS: PROTHROMBIN TIME PATIENT 11.9 SEC (11.7-14.0)
--- NOTE | 2021-03-20 10:33 | PDOC ---
MODERATE SEDATION ASSESSMENT RISKS/ALTERNATIVES Risks/Alternatives Risks and alternatives of this type of sedation and procedure discussed with: RISK/ALTERNATIVES: Patient H & P ON CHART H & P H & P on chart and reviewed for co-morbid conditions and appropriate labs. H&P ON CHART: Yes STATUS PREG STATUS ASSESSED: Yes MEDS/ALLERGIES REVIEWED Meds/Allergies Reviewed Medications and Allergies including time and route of recently administered narcotics and sedatives. MEDS/ALLERGIES REVIEWED: Yes ASA RATING ASA RATING: II AIRWAY ASSESSMENT Airway Assessment Airway patency, oral function limitations, presence of caps, crowns, dentures, partials, and ability to extend neck assessed. AIRWAY ASSESSMENT: Yes MALLAMPATI SCORE MALLAMPATI SCORE: II PRE-SEDATION ASSESSMENT PRE-SEDATION ASSESSMENT: Yes GIA MONTENEGRO MD Mar 20, 2021 10:33
--- NOTE | 2021-03-20 10:33 | PDOC ---
BRIEF OPERATIVE NOTE Pre-Op Diagnosis BETH Post-Op Diagnosis same Procedure Performed US liver biopsy Surgeon Naima ACOSTA minimal Anesthesia Type: Conscious Sedation Specimens Obtained 3 x 18g cores Findings US liver biopsy Complications no immediate GIA MONTENEGRO MD Mar 20, 2021 10:33
--- NOTE | 2021-03-20 11:17 | NUR ---
Patient complains of 4/10 pain in left lower back. Sore. No bleeding at site. Notified MD, order received for Tylenol and a CXR. Will continue to monitor. See imaging. VS stable.
--- NOTE | 2021-03-20 12:07 | RAD ---
Portable chest x-ray without comparison for status post liver biopsy, pleuritic chest pain. FINDINGS: The lungs are clear. Cardiomediastinum is grossly unremarkable. No pneumothorax. IMPRESSION: 1. No acute cardiopulmonary abnormality. Electronically signed by: Gentry Mcnamara MD (03/20/2021 12:04 PM) [id number]
--- NOTE | 2021-03-20 12:40 | NUR ---
Order received from Dr. Mcnamara to d/c patient-- imaging appears normal. Patient's pain is considered "sore" and she states she will continue to take Tylenol as advised by MD. No bruising at site. PIV removed. Dressing clean, dry intact. VS stable. Instructions provided on site care, sedation, biopsy. Patient verbalized understanding. Brother is driving home. All belongings taken w/ patient at time of d/c.
--- NOTE | 2021-03-20 16:04 | RAD ---
Procedure: Ultrasound-guided random liver biopsy Clinical Indication: Adult female with cirrhosis, Zepeda Sedation: Conscious sedation using a combination of Versed and fentanyl was provided for 13 minutes, including continuous monitoring of the patients heart rate, rhythm, blood pressure, oxygen saturation and level of arousability by a trained independent observer. Antibiotics: None Sterility: The procedure was performed in its entirety using appropriate elements of sterile techniqu e. Consent: The procedure was explained in its entirety to the patient or the patients designated repres entative by a member of the treatment team, including a discussion of the risks, benefits and commonl y accepted alternatives to the procedure, as well as the expected consequences of not performing the procedure. Discussion of the risks included, but was not limited to, those that are most frequent an d those that are rare but possibly severe or life-threatening, as well as the possibility of unforese en complications. Time Out: Immediately prior to initiation a procedural pause was conducted in the presence of the mem bers of the treatment team to verify correct patient identity, correct procedure, correct side if clara licable, correct patient position, availability of specialized equipment, review of patients allergie s, and assessment of current level of consciousness and arousability. Technique and Findings: Following informed consent, the patient was prepped and draped in usual steri le fashion. Ultrasound interrogation of the area of interest was performed. 1 percent lidocaine was u sed to achieve local anesthesia. Under ultrasound guidance, an 17-gauge needle guide was advanced in the right lobe of liver and 3 separate 18-gauge core biopsy specimens were performed. Hardcopy ultras ound images were recorded. Gelfoam pledgets were applied as the needle guide was removed and hemostas is was achieved with manual compression. Complications: No immediate Impression: 1. Ultrasound-guided random tissue liver biopsy as described. Electronically signed by: Gentry Mcnamara MD (03/20/2021 4:02 PM) [id number]
--- NOTE | 2021-03-23 14:09 | PATHOLOGY ---
[facility] Accession Number: [id number] . 01 Material submitted: . liver - LIVER BIOPSY . 01 Clinical history: . LIVER BIOPSY . TRANSAMINITIS; HYPERBILIRUBINEMIA, WITH MILDLY ECOGENIC LIVER - QUESTION FATTY LIVER . 02 Diagnosis: Liver, needle biopsy: - Mild, focal portal inflammation and minimal spotty lobular necroinflammatory activity. - Negative for significant fibrosis. - Please see comment. ([facility]; 03/23/2021) [facility] 03/23/2021 1347 Local . 02 Comment: Evaluation of the liver biopsy shows focal mild portal and lobular inflammation without evidence of significant fibrosis. The features are compatible with an evolving recent liver injury. Features of steatohepatitis, chronic hepatitis, or an autoimmune process are not identified in the current biopsy material. Please correlate clinically. ([facility]; 03/23/2021) . 02 Electronically signed: . Shila Oliver MD, Pathologist NPI- [id number] . 01 Gross description: . The specimen is submitted in formalin, labeled "[place], liver BX". Received are 3 needle cores of dark hinton tissue ranging in length from 1.5 to 1.8 cm by 0.1 cm in diameter. The specimen is submitted entirely in cassettes A1 to A3.([facility]; 03/20/2021) [facility] 03/20/2021 1534 Local . 02 Microscopic: . A needle biopsy of the liver is available for review. The portal tracts are variable. Most are small and unremarkable. A few of the portal tracts display a mild mixed inflammatory infiltrate, with lymphocytes predominating. Occasional plasma cells and rare eosinophils are also noted. Granulomatous inflammation is not identified. Interlobular bile ducts are seen within the majority of portal tracts examined. They demonstrate minimal epithelial injury. There is no significant portal edema and ductular reaction is not prominent. Interface activity is minimal to nonexistent. . The hepatic parenchyma shows minimal steatosis (less than 5%). Spotty lobular necroinflammatory activity is minimal. A rare apoptotic body is seen. Sinusoidal inflammatory cells are rare and consist of an occasional lymphocyte and neutrophil. There is focal zone 3 sinusoidal dilatation, and there is no accompanying sinusoidal congestion. This is not wide spread. . The trichrome stain fails to identify significant fibrous connective tissue deposition. The reticulin stain shows an overall intact hepatic reticulin framework pattern. The majority of hepatic plates are of appropriate thickness. Some are irregularly thickened, compatible with localized regeneration. The PAS stain highlights intracytoplasmic glycogen. The PASD stain shows ceroid laden Kupffer cells. PASD positive intracytoplasmic hepatocellular globules are not evident. The iron stain is negative. . ([facility]; 03/23/2021) . Special stains (blocks A1 and A2): PAS, PASD, iron, trichrome, and reticulin . 02 Pathologist provided ICD-10: K75.9 . 02 CPT . 587046, 314514, 964422, 897615, 225778, 195833, 550426, 580346, 339094, 304840, 830545 Specimen Comment: A courtesy copy of this report has been sent to [phone] Specimen Comment: Report sent to Performed at: 01 [facility] [address] [id number] MD Rajesh Vaca MD Phone: [phone] Performed at: 02 [facility] [id number] [address] [id number] MD Macario Burnett MD Phone: [phone]
== END | disposition home or self-care (01) ==
LOC: INTRAD 08:27 → EDSEX 08:27
PROVIDERS: ATTEND Physician Assistant
DX: K75.81 Nonalcoholic steatohepatitis (NASH) (principal); K74.69 Other cirrhosis of liver; E66.9 Obesity, unspecified; F41.9 Anxiety disorder, unspecified; F32.9 Major depressive disorder, single episode, unspecified; F17.210 Nicotine dependence, cigarettes, uncomplicated; Z79.899 Other long term (current) drug therapy; Z90.49 Acquired absence of other specified parts of digestive tract; Z98.890 Other specified postprocedural states; Z72.89 Other problems related to lifestyle; Z91.040 Latex allergy status; Z88.8 Allergy status to other drugs, medicaments and biological substances
CPT/HCPCS: 36415; 47000; 71045; 76942; 85025; 85610; 99152; J2250; J3010; J3490; 88307; 88313

== ENCOUNTER 2021-08-25 22:06 | Emergency (ER) | payer OTHER ==
[~2021-08-25] VITALS: Ht 157.5 cm; Wt 84.0 kg
[~2021-08-25 22:06] MED LIST changes: -ACETAMINOPHEN 500 MG TABLET PO ONE; -GELATIN SPONGE SIZE 12-7MM SPONGE. ONE; -LIDOCAINE WITH 8.4% SOD BICARB 3 ML DISP.SYRIN. IJ ONE; -LIDOCAINE WITH 8.4% SOD BICARB 3 ML DISP.SYRIN. ONE; -MIDAZOLAM HCL/PF 2 MG/2 ML VIAL. IV ONE; -MIDAZOLAM HCL/PF 2 MG/2 ML VIAL. ONE; -fentaNYL PF VIAL 100 MCG/2 ML VIAL IV ONE; -fentaNYL PF VIAL 100 MCG/2 ML VIAL ONE
[2021-08-25] MEDS ORDERED: IV NORMAL SALINE 1000ML BAG 1,000 ML IV SCH (22:30)
--- NOTE | 2021-08-25 22:34 | PHYS DOC ---
Past Medical History Past Medical History: Anxiety, Asthma, Depression, DVT, GERD, Kidney Infection Past Surgical History: Appendectomy, Cholecystectomy, Tonsillectomy Additional Past Surgical Histo: SALPINGECTOMY, LEFT KNEE/LOWER LEG SX, D&C Smoking Status: Current Some Day Smoker Alcohol Use: Occasionally Drug Use: None General Adult EDM: Chief Complaint: ABDOMINAL PAIN HPI: HPI: Patient is a 30 year old female who presents with lower mid abdominal sharp pain that the patient states feels like contractions but worse. She rates her pain 10 out of 10. This all started after tonight prior to arrival she was having anal intercourse with her and using a vibrator on her clitoris. She states she then had a very intense orgasm and the pain then started. She states this is not the first time that she has had anal intercourse. Patient states that her doctor that did her hysterectomy is Dr. Xiao at [facility]. She states EMS told her that there was a 4-hour wait and so they brought her here to [place]. Patient has a appointment with her CERTIFIED ENERGY MANAGER on September 05 for her 6-week post visit. Patient has a history of salpingectomy, D&C, smoker, DVT, GERD, kidney infection, depression, asthma, appendectomy, cholecystectomy, tonsillectomy. Review of Systems: Review of Systems: Constitutional: Denies fever or chills. [] Eyes: Denies change in visual acuity. [] HENT: Denies nasal congestion or sore throat. [] Respiratory: Denies cough or shortness of breath. [] Cardiovascular: Denies chest pain or edema. [] GI: Denies abdominal pain, nausea, vomiting, bloody stools or diarrhea. [] : Denies dysuria. [] Musculoskeletal: Denies back pain or joint pain. [] Integument: Denies rash. [] Neurologic: Denies headache, focal weakness or sensory changes. [] Endocrine: Denies polyuria or polydipsia. [] Lymphatic: Denies swollen glands. [] Psychiatric: Denies depression or anxiety. [] Heart Score: C/O Chest Pain: No Current Medications: Current Medications Medications (Trade) Dose Ordered Sig/Poncho Start Time Stop Time Status Last Admin Dose Admin Sodium Chloride 1,000 ml @ 1,000 mls/hr Q1H 08/25/21 22:15 08/25/21 23:14 UNV Allergies: Allergies: Allergies Coded Allergies Type Severity Reaction Last Updated Verified pineapple Allergy Severe mouth numbness and throat swelling 08/07/19 Yes adhesive Allergy Intermediate RASH-DERMABOND 08/07/19 Yes latex Allergy Intermediate Hives 08/07/19 Yes morphine Allergy Intermediate Rash 08/07/19 Yes I S O L A T I O N *CONTACT* Allergy Unknown 09/11/19 Yes lactose Adverse Reaction Intermediate LACTOSE INTOLERANCE 08/07/19 Yes Uncoded Allergies Type Severity Reaction Last Updated Verified WASABI Allergy Severe THROAT STARTED TO CLOSE UP 10/09/18 Physical Exam: PE: Constitutional: Well developed, well nourished, no acute distress, non-toxic appearance. [] HENT: Normocephalic, atraumatic, bilateral external ears normal, oropharynx moist, no oral exudates, nose normal. [] Eyes: PERRLA, EOMI, conjunctiva normal, no discharge. [] Neck: Normal range of motion, no tenderness, supple, no stridor. [] Cardiovascular:Heart rate regular rhythm, no murmur [] Lungs & Thorax: Bilateral breath sounds clear to auscultation [] Abdomen: Bowel sounds normal, soft, low mid tenderness, no masses, no pulsatile masses. [] Skin: Warm, dry, no erythema, no rash. [] Back: No tenderness, no CVA tenderness. [] Extremities: No tenderness, no cyanosis, no clubbing, ROM intact, no edema. [] Neurologic: Alert and oriented X 3, normal motor function, normal sensory function, no focal deficits noted. [] Psychologic: Affect normal, judgement normal, mood normal. [] EKG: EKG: [] Radiology/Procedures: Radiology/Procedures: [] Impression: [facility] [address] [place] [address] IMAGING REPORT Signed PATIENT: YADIRA MONZON LACCOUNT: [id number] : 1990 LOCATION: ER AGE: 30 SEX: F EXAM STATUS: PRE ER ORD. PHYSICIAN: DAWN COVINGTON APRN REASON: recent hysterectomy, had sex tonight, now severe pain PROCEDURE: CT ABDOMEN PELVIS WO CONTRAST Exam: CT of abdomen and pelvis without contrast INDICATION: Recent hysterectomy, severe pain TECHNIQUE: Sequential axial images through the abdomen and pelvis obtained without IV contrast. Sagittal and coronal reformatted images were reconstructed from the axial data and reviewed. Exposure: One or more of the following in the visualized dose reduction techniques were utilized for this examination: 1. Automated exposure control 2. Adjustment of the MA and/or KV according to patient size 3. Use of iterative of reconstructive technique Comparisons: None FINDINGS: Heart size is normal. No pericardial effusion. Visualized lung bases are clear.. Evaluation solid organs limited secondary to noncontrast technique. Liver, spleen, pancreas and adrenals are unremarkable. Gallbladder is absent. No perinephric inflammation or hydronephrosis. No renal or ureteral calculi are identified. Bladder is partially distended and appears thin-walled. Uterus is absent. No abnormal adnexal mass. There is a small amount of free fluid noted within the pelvis. Large and small bowel are unremarkable. No free intra-abdominal air. No obstruction. Abdominal aorta has normal course and caliber. No enlarged intra-abdominal lymph nodes are identified. No suspicious osseous lesions or acute fractures. IMPRESSION: Hysterectomy changes and trace amount of free fluid in the pelvis. No free air in the pelvis to suggest anastomotic dehiscence. Electronically signed by: Cammy Millan MD (08/25/2021 11:53 PM) [facility] DICTATED and SIGNED BY: CAMMY MILLAN MD DATE: 08/25/21 3893 Course & Med Decision Making: Course & Med Decision Making Pertinent Labs and Imaging studies reviewed. (See chart for details) See HPI. Alert and oriented x4. Ambulatory steady gait. Skin pink warm and dry. Low mid abdomen is tender with palpation. Denies any urinary symptoms. Vital signs within normal limits. Speaks in full clear sentences. Rectal Exam: Normal tone, No mass, Positive control, no fissures, no pain with exam Stool: No stool in vault Guaiac: No blood CT abdomen pelvis showed no acute findings. Patient received 15 mg of Toradol, 50 mcg of fentanyl, 1L of normal saline, 60 mg IM Norflex, 4 mg Zofran. [] Dragon Disclaimer: Dragon Disclaimer: This electronic medical record was generated, in whole or in part, using a voice recognition dictation system. Departure Departure Impression: Primary Impression: Abdominal pain Qualified Codes: R10.9 - Unspecified abdominal pain Disposition: HOME / SELF CARE / HOMELESS Condition: STABLE Referrals: OMAR TOLLIVER MD (PCP) Patient Instructions: Abdominal Pain (Nonspecific) Additional Instructions: Call your gynecology doctor in the morning as there will be somebody vascular surgeon for you to speak to. Let them know what happened. Hopefully can get a appointment on Saturday. Do not have any kind of intercourse until you are seen by a physician. If you begin having severe pain or heavy vaginal bleeding I would go to [facility] where you had the surgery for continuation of care with your surgeon. Scripts Ibuprofen (IBUPROFEN) 600 Mg Tablet 600 MG PO PRN Q6HRS PRN for INFLAMMATION, #20 TAB Prov: DAWN COVINGTON APRN 08/26/21 Hydrocodone Bit/Acetaminophen (HYDROCODONE-APAP 5-325 ) 1 Tab Tablet 1 TAB PO PRN Q6HRS PRN for PAIN, #10 TAB 0 Refills Prov: DAWN COVINGTON APRN 08/26/21 DAWN COVINGTON APRN Aug 25, 2021 22:34
[2021-08-25 23:19] LABS: BASO % 0 % (0-3); EOS # 0.1 x10^3/uL (0.0-0.7); EOS % 1 % (0-3); LYMPH # 2.1 x10^3/uL (1.0-4.8); LYMPH % 24 % (24-48); MEAN CORPUSCULAR HEMOGLOBIN 32 pg (25-35); MEAN CORPUSCULAR HGB CONC 34 g/dL (31-37); MEAN CORPUSCULAR VOLUME 94 fL (79-100); MONO # 0.5 x10^3/uL (0.0-1.1); MONO % 5 % (0-9); NEUT # 6.2 x10^3/uL (1.8-7.7); NEUT % 69 % (31-73); PLATELET COUNT 250 x10^3/uL (140-400); RED BLOOD COUNT 4.06 x10^6/uL (3.50-5.40); RED CELL DISTRIBUTION WIDTH 12.4 % (11.5-14.5); WHITE BLOOD COUNT 8.9 x10^3/uL (4.0-11.0)
[2021-08-25 23:28] LABS: CALCIUM 8.5 mg/dL (8.5-10.1); CREATININE 1.5 mg/dL (0.6-1.0); GFR 40.5; POTASSIUM 3.6 mmol/L (3.5-5.1)
[2021-08-25 23:39] LABS: ALBUMIN 3.9 g/dL (3.4-5.0); ALBUMIN/GLOBULIN RATIO 1.6 (1.0-1.7); TOTAL BILIRUBIN 0.2 mg/dL (0.2-1.0); TOTAL PROTEIN 6.3 g/dL (6.4-8.2)
--- NOTE | 2021-08-25 23:56 | RAD ---
Exam: CT of abdomen and pelvis without contrast INDICATION: Recent hysterectomy, severe pain TECHNIQUE: Sequential axial images through the abdomen and pelvis obtained without IV contrast. Sagit sue and coronal reformatted images were reconstructed from the axial data and reviewed. Exposure: One or more of the following in the visualized dose reduction techniques were utilized for this examination: 1. Automated exposure control 2. Adjustment of the MA and/or KV according to patient size 3. Use of iterative of reconstructive technique Comparisons: None FINDINGS: Heart size is normal. No pericardial effusion. Visualized lung bases are clear.. Evaluation solid organs limited secondary to noncontrast technique. Liver, spleen, pancreas and adrenals are unremarkable. Gallbladder is absent. No perinephric inflammation or hydronephrosis. No renal or ureteral calculi are identified. Bladder is partially distended and appears thin-walled. Uterus is absent. No abnormal adnexal mass. T here is a small amount of free fluid noted within the pelvis. Large and small bowel are unremarkable. No free intra-abdominal air. No obstruction. Abdominal aorta has normal course and caliber. No enlarged intra-abdominal lymph nodes are identified. No suspicious osseous lesions or acute fractures. IMPRESSION: Hysterectomy changes and trace amount of free fluid in the pelvis. No free air in the pelvis to sugge st anastomotic dehiscence. Electronically signed by: Cammy Monson MD (08/25/2021 11:53 PM) [facility]
[2021-08-26] MEDS ORDERED: KETOROLAC 30 MG/ML VIAL. IVP ONE (00:15)
[2021-08-26] MEDS ORDERED: KETOROLAC 15 MG/ML VIAL. IVP ONE (00:30)
[2021-08-26] MEDS ORDERED: fentaNYL PF VIAL 100 MCG/2 ML VIAL IVP ONE (00:30)
[2021-08-26] MEDS ORDERED: HYDR-2761 PO (00:46)
[2021-08-26] MEDS ORDERED: IBUP-1007 PO (00:46)
[2021-08-26] MEDS ORDERED: ORPHENADRINE CITRATE 60 MG/2 ML VIAL. IM ONE (01:00)
[2021-08-26] MEDS ORDERED: ONDANSETRON PF 4 MG/2 ML VIAL. IVP ONE (01:00)
[2021-08-26 01:30] VITALS: BP 112/71
== END 2021-08-26 01:30 | disposition home or self-care (01) ==
LOC: ER 22:06
DX: R10.30 Lower abdominal pain, unspecified (principal); J45.909 Unspecified asthma, uncomplicated; K21.9 Gastro-esophageal reflux disease without esophagitis; F17.200 Nicotine dependence, unspecified, uncomplicated; Z86.718 Personal history of other venous thrombosis and embolism; Z90.49 Acquired absence of other specified parts of digestive tract; Z91.040 Latex allergy status; Z88.5 Allergy status to narcotic agent; Z91.041 Radiographic dye allergy status; Z91.018 Allergy to other foods; Z88.8 Allergy status to other drugs, medicaments and biological substances
CPT/HCPCS: 36415; 74176; 80053; 84484; 85025; 96361; 96372; 96374; 96375; 99285; J1885; J2360; J2405; J3010; J7030

== ENCOUNTER → 2021-09-22 | Outpatient (CLI) | payer OTHER ==
[2021-08-26 01:30] VITALS: BP 112/71
[~2021-09-22] MED LIST changes: +HYDR-2761 PO; +IBUP-1007 PO
--- NOTE | 2021-09-22 15:32 | CARD ---
MR#: [id number] Date of Study: 09/22/2021 Ordering Physician: JUAN ANTONIO ESPARZA, Referring Physician: JUAN ANTONIO ESPARZA, Tech: HERSON PARRA [facility] APPROVED REPORT EXAM: Two-dimensional and M-mode echocardiogram with Doppler and color Doppler. Other Information Quality : GoodHR: 74bpm Rhythm : NSR INDICATION Syncope 2D DIMENSIONS RVDd2.5 (2.9-3.5cm)Left Atrium(2D)2.8 (1.6-4.0cm) IVSd0.8 (0.7-1.1cm)Aortic Root(2D)3.0 (2.0-3.7cm) LVDd4.2 (3.9-5.9cm)LVOT Diameter2.1 (1.8-2.4cm) PWd0.8 (0.7-1.1cm)LVDs3.3 (2.5-4.0cm) FS (%) 21.3 %SV34.0 ml Aortic Valve AoV Peak Ihlario.94.1cm/sAoV VTI21.6cm AO Peak GR.3.5mmHgLVOT Peak Hilario.91.3cm/s AO Mean GR.2mmHgAVA (VMAX)3.30cm2 Mitral Valve MV E Arkgjhxs27.2cm/sMV DECEL [id number] MV A Dkewjjfi24.0cm/sE/A Ratio1.3 Pulmonary Valve PV Peak Jbzqbgrc51.6cm/s Tricuspid Valve TR P. Skowuejn949gu/sRAP CEBCNTIB0awPa TR Peak Gr.8gcPkDRHR0yaQw Pulmonary Vein S1 Iwunplnh77.3cm/sD2 Etcvmfuo29.9cm/s PVa [id number] LEFT VENTRICLE The left ventricle is normal size. There is normal left ventricular wall thickness. Left ventricular systolic function is normal. The left ventricular ejection fraction is 50-55%. No regional wall motio n abnormalities noted. The left ventricular diastolic function is normal. No left ventricle thrombus noted on this study. There is no ventricular septal defect visualized. There is no left ventricular a neurysm. There is no mass noted in the left ventricle. RIGHT VENTRICLE The right ventricle is normal size. There is normal right ventricular wall thickness. The right ventr icular systolic function is normal. ATRIA The left atrium size is normal. The right atrium size is normal. The interatrial septum is intact wit h no evidence for an atrial septal defect or patent foramen ovale as noted on 2-D or Doppler imaging. AORTIC VALVE The aortic valve is trileaflet. Doppler and Color Flow revealed no significant aortic regurgitation. There is no aortic valvular stenosis. There is no aortic valvular vegetation. MITRAL VALVE The mitral valve is normal in structure and function. There is no evidence of mitral valve prolapse. There is no mitral valve stenosis. Doppler and Color Flow revealed no mitral valve regurgitation note d. TRICUSPID VALVE The tricuspid valve is normal in structure and function. Doppler and Color Flow revealed no tricuspid valve regurgitation noted. There is no tricuspid valve prolapse or vegetation. There is no tricuspid valve stenosis. PULMONIC VALVE The pulmonary valve is normal in structure and function. There is no pulmonic valvular regurgitation. There is no pulmonic valvular stenosis. GREAT VESSELS The aortic root is normal in size. The ascending aorta is normal in size. The pulmonary artery is nor mal. The IVC is normal in size and collapses >50% with inspiration. PERICARDIAL EFFUSION There is no pleural effusion. The pericardium appears normal. Critical Notification Critical Value: No <Conclusion> The left ventricle is normal size. Left ventricular systolic function is normal. The left ventricular ejection fraction is 50-55%. No regional wall motion abnormalities noted. Doppler and Color Flow revealed no significant aortic regurgitation. There is no aortic valvular stenosis. Doppler and Color Flow revealed no mitral valve regurgitation noted. Doppler and Color Flow revealed no tricuspid valve regurgitation noted. Signed by : Colby Davis MD Electronically Approved : 09/22/2021 15:32:18
== END ==
LOC: ECHO 09:41
PROVIDERS: ATTEND Internal Medicine Cardiovascular Disease
DX: R55 Syncope and collapse (principal)
CPT/HCPCS: 93306; C8929